=== PATIENT | female | born 1995 | race African-American/Black ===

== ENCOUNTER 2017-04-01 18:57 | Emergency (ER) | payer BC, MEDICAID ==
[~2017-04-01] VITALS: Ht 162.6 cm; Wt 75.0 kg
[2017-04-01] MEDS ORDERED: ACETAMINOPHEN 500MG TABLET PO ONE (23:15)
[2017-04-01] MEDS ORDERED: IBUPROFEN 400MG TABLET PO ONE (23:45)
[2017-04-02 00:13] VITALS: BP 124/68
== END 2017-04-02 00:30 | disposition home or self-care (01) ==
LOC: ER 22:54
DX: S61.102A Unspecified open wound of left thumb with damage to nail, initial encounter (principal); V49.59XA Passenger injured in collision with other motor vehicles in traffic accident, initial encounter; Y93.89 Activity, other specified; Y92.410 Unspecified street and highway as the place of occurrence of the external cause
CPT/HCPCS: 29130; 71010; 73130; 99284